=== PATIENT | female | born 1945 | race Caucasian/White ===

== ENCOUNTER 2019-09-02 11:51 | Inpatient (IN) | payer OTHER ==
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
[2019-09-02 15:25] LABS: PH,URINE 5.5 (5.0-8.0); URINE APPEARANCE CLEAR; URINE BILIRUBIN NEGATIVE (NEGATIVE); URINE COLOR YELLOW; URINE GLUCOSE (UA) NEGATIVE (NEGATIVE); URINE KETONE TRACE (NEGATIVE); URINE LEUK ESTERASE NEGATIVE (NEGATIVE); URINE NITRITE NEGATIVE (NEGATIVE); URINE PROTEIN NEGATIVE (NEGATIVE); URINE UROBILINOGEN 0.2 mg/dL (0.2-1.0)
[2019-09-02 15:44] LABS: BASO % 0.7 % (0-2.0); EOS % 0.1 % (0-4.5); HEMATOCRIT 46.7 % (32.4-45.2); HEMOGLOBIN 15.4 GM/dL (10.7-15.3); LYMPH % 5.5 % (8-40); MCH 30.2 pg (25.7-33.7); MEAN CELL VOLUME 91.5 fl (80-96); MEAN PLT VOLUME 9.4 fl (7.5-11.1); MONO % 4.7 % (3.8-10.2); PLATELET COUNT 256 K/MM3 (134-434); RDW 14.4 % (11.6-15.6); WHITE BLOOD COUNT 11.8 K/mm3 (4.0-10.0)
[2019-09-02 16:07] LABS: ALBUMIN 3.8 g/dl (3.4-5.0); ALK PHOS 69 U/L (45-117); ANION GAP 8 MMOL/L (8-16); BILIRUBIN,TOTAL 0.6 mg/dL (0.2-1); BLOOD UREA NITROGEN 33.1 mg/dL (7-18); CALCIUM 9.3 mg/dL (8.5-10.1); CHLORIDE 106 mmol/L (98-107); CO2 26 mmol/L (21-32); CREATININE 0.8 mg/dL (0.55-1.3); GLUCOSE,RANDOM 88 mg/dL (74-106); SGOT/AST 110 U/L (15-37); SGPT/ALT 68 U/L (13-61); SODIUM 141 mmol/L (136-145); TOT PROT 7.3 g/dl (6.4-8.2)
[2019-09-02 16:07] LABS: COCAINE, UR NEGATIVE ng/ml (CUTOFF=300); METHADONE, UR NEGATIVE ng/ml (CUTOFF=300); OPIATES, URI NEGATIVE ng/ml (CUTOFF=300); PHENCYCLIDINE,URINE NEGATIVE ng/ml (CUTOFF=25); URINE AMPHETAMINES NEGATIVE ng/ml (CUTOFF=500); URINE BARBITURATES NEGATIVE ng/ml (CUTOFF=200); URINE BENZODIAZEPINES NEGATIVE ng/ml (CUTOFF=200)
[2019-09-02 17:27] LABS: PLATELET ESTIMATE ADEQUATE
[2019-09-02] MEDS ORDERED: ACETAMINOPHEN 1000 MG/100 ML VIAL (NON FORMULARY) IVPB ONE (18:51)
[2019-09-02] MEDS ORDERED: ACETAMINOPHEN INJECTION 100 ML IVPB ONE (18:57)
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
[2019-09-03] MEDS: ATORVASTATIN CA 10 MG TABLET (FP) PO SCH ×2 (00:10→21:56)
--- NOTE | 2019-09-03 06:44 | FALL ---
Fall Exam - Event Witnessed fall: No Location of Fall: Bathroom Fall from: While ambulating - Pre-Fall Mental Status: Alert Current Medications: Current Medications Generic Name Dose Route Start Last Admin Trade Name Laquita PRN Reason Stop Dose Admin Atorvastatin Calcium 10 mg 09/02/19 22:31 09/03/19 00:10 Lipitor - PO Not Given HS MICHEL Lisinopril 10 mg 09/03/19 10:00 Prinivil PO DAILY MICHEL - Post-Fall Patient Outcome: No Injury Exam Findings: AAOx2 with flat affect-at baseline. HEENT- atraumatic, normocephalic, conjunctiva clear, EOMs intact, PERRL, tympanic membranes intact , nares moist, no exudate, no erythema. Neck- supple, FROM. Lungs-CTAB, Heart- RRR, S1,S2, no MGR. Abd- soft, non-tender, BS present. Musculoskeletal- non- tender, no swelling, FROM. Hip/Pelvis- non-tender. Extremites- FROM, no shortening. Treatment: None Vital Signs: Vital Signs Temperature 97.6 F 09/03/19 06:02 Pulse Rate 89 09/03/19 06:02 Respiratory Rate 18 09/03/19 06:31 Blood Pressure 146/90 09/03/19 06:02 O2 Sat by Pulse Oximetry (%) 98 09/03/19 06:31 LOC Post-Fall: Alert Identify factors for HIGH RISK for Head Injury: Pt on anticoagulant
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
[2019-09-03 07:55] LABS: BASO % 0.6 % (0-2.0); EOS % 0.3 % (0-4.5); HEMATOCRIT 45.2 % (32.4-45.2); HEMOGLOBIN 15.3 GM/dL (10.7-15.3); LYMPH % 8.3 % (8-40); MCH 30.8 pg (25.7-33.7); MCHC 33.9 g/dl (32.0-36.0); MEAN CELL VOLUME 90.7 fl (80-96); MEAN PLT VOLUME 9.1 fl (7.5-11.1); MONO % 5.7 % (3.8-10.2); NEUT % 85.1 % (42.8-82.8); PLATELET COUNT 251 K/MM3 (134-434); RBC 4.98 M/mm3 (3.60-5.2); RDW 14.5 % (11.6-15.6); WHITE BLOOD COUNT 10.8 K/mm3 (4.0-10.0)
[2019-09-03 09:29] LABS: BLOOD UREA NITROGEN 24.4 mg/dL (7-18); CALCIUM 9.4 mg/dL (8.5-10.1); CREATININE 0.7 mg/dL (0.55-1.3); POTASSIUM 3.7 mmol/L (3.5-5.1)
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
--- NOTE | 2019-09-03 11:03 | EKG ---
Test Reason : Blood Pressure : / mmHG Vent. Rate : 085 BPM Atrial Rate : 085 BPM P-R Int : 130 ms QRS Dur : 074 ms QT Int : 372 ms P-R-T Axes : 053 -06 039 degrees QTc Int : 442 ms POOR DATA QUALITY, INTERPRETATION MAY BE ADVERSELY AFFECTED SINUS RHYTHM WITH PREMATURE ATRIAL COMPLEXES POSSIBLE LEFT ATRIAL ENLARGEMENT BORDERLINE ECG WHEN COMPARED WITH ECG OF 28-JUL-2019 11:49, PREMATURE ATRIAL COMPLEXES ARE NOW PRESENT VENT. RATE HAS INCREASED BY 28 BPM Confirmed by HENNA RIOS MD ([id number]) on 09/03/2019 11:02:56 AM Referred By: Confirmed By:HENNA RIOS MD
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
[2019-09-03] MEDS: LISINOPRIL 10 MG TABLET (FP) PO SCH (11:12)
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
[2019-09-03] MEDS: ESCITALOPRAM OXALATE 10 MG TABLET PO SCH (21:56)
[2019-09-04 08:17] LABS: BASO % 0.7 % (0-2.0); EOS % 1.1 % (0-4.5); HEMATOCRIT 42.7 % (32.4-45.2); HEMOGLOBIN 14.2 GM/dL (10.7-15.3); LYMPH % 14.9 % (8-40); MCH 30.2 pg (25.7-33.7); MCHC 33.4 g/dl (32.0-36.0); MEAN CELL VOLUME 90.6 fl (80-96); MEAN PLT VOLUME 8.7 fl (7.5-11.1); MONO % 7.1 % (3.8-10.2); NEUT % 76.2 % (42.8-82.8); PLATELET COUNT 239 K/MM3 (134-434); RBC 4.71 M/mm3 (3.60-5.2); RDW 14.7 % (11.6-15.6); WHITE BLOOD COUNT 9.7 K/mm3 (4.0-10.0)
[2019-09-04 08:31] LABS: BLOOD UREA NITROGEN 27.8 mg/dL (7-18); CALCIUM 8.7 mg/dL (8.5-10.1); CREATININE 0.8 mg/dL (0.55-1.3); POTASSIUM 3.9 mmol/L (3.5-5.1)
[2019-09-04] MEDS: ESCITALOPRAM OXALATE 10 MG TABLET PO SCH (10:03)
[2019-09-04] MEDS: LISINOPRIL 10 MG TABLET (FP) PO SCH (10:04)
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
--- NOTE | 2019-09-04 12:50 | EKG ---
Test Reason : Blood Pressure : / mmHG Vent. Rate : 072 BPM Atrial Rate : 072 BPM P-R Int : 138 ms QRS Dur : 084 ms QT Int : 396 ms P-R-T Axes : 046 -07 024 degrees QTc Int : 433 ms SINUS RHYTHM WITH OCCASIONAL PREMATURE VENTRICULAR COMPLEXES OTHERWISE NORMAL ECG WHEN COMPARED WITH ECG OF 02-SEP-2019 15:36, PREMATURE VENTRICULAR COMPLEXES ARE NOW PRESENT PREMATURE ATRIAL COMPLEXES ARE NO LONGER PRESENT Confirmed by GENA HO, VERONA ([id number]) on 09/04/2019 12:50:26 PM Referred By: Minor RODRÍGUEZ Confirmed By:VERONA AVERY MD
--- NOTE | 2019-09-04 15:41 | PN ---
Progress Note, Physician History of Present Illness: Pt is very depressed Not Talking today Pt need to be reevaluated by psych No Fever No SOB No chest pain - Current Medication List Current Medications: Active Medications Escitalopram Oxalate (Lexapro -) 10 mg PO DAILY [facility] Last Admin: 09/04/19 10:03 Dose: 10 mg Lisinopril (Prinivil) 10 mg PO DAILY [facility] Last Admin: 09/04/19 10:04 Dose: 10 mg - Objective Vital Signs: Vital Signs Temperature 98.7 F 09/04/19 13:53 Pulse Rate 67 09/04/19 13:53 Respiratory Rate 20 09/04/19 13:53 Blood Pressure 104/61 09/04/19 13:53 O2 Sat by Pulse Oximetry (%) 97 09/04/19 06:00 Constitutional: Yes: Anxious Eyes: Yes: Conjunctiva Clear, EOM Intact HENT: Yes: Atraumatic, Normocephalic Neck: Yes: Supple, Trachea Midline Cardiovascular: Yes: Regular Rate and Rhythm, S1, S2 Respiratory: Yes: Regular, CTA Bilaterally Gastrointestinal: Yes: Normal Bowel Sounds, Soft Labs: CBC, BMP 09/04/19 07:40 09/04/19 07:40 Problem List - Problems (1) Altered mental status Code(s): R41.82 - ALTERED MENTAL STATUS, UNSPECIFIED (2) Anxiety Code(s): F41.9 - ANXIETY DISORDER, UNSPECIFIED (3) Diastolic CHF Code(s): I50.30 - UNSPECIFIED DIASTOLIC (CONGESTIVE) HEART FAILURE (4) HLD (hyperlipidemia) Code(s): E78.5 - HYPERLIPIDEMIA, UNSPECIFIED (5) Hypertension Code(s): I10 - ESSENTIAL (PRIMARY) HYPERTENSION (6) Paranoia Code(s): F22 - DELUSIONAL DISORDERS (7) Rhabdomyolysis Code(s): M62.82 - RHABDOMYOLYSIS Assessment/Plan (1) Diastolic CHF Assessment/Plan: TNI < 0.02 x 2. ECHO 08/03: normal LVEF; diastolic dysfunction; mild MR and TR. EKG: sinus bradycardia; LAE; nonspecific T wave changes. On lisinopril. F/u BUN/Cr, electrolytes, TSH, Is and Os, daily weight. Code(s): I50.30 - UNSPECIFIED DIASTOLIC (CONGESTIVE) HEART FAILURE (2) Altered mental status Code(s): R41.82 - ALTERED MENTAL STATUS, UNSPECIFIED (3) Anxiety Code(s): F41.9 - ANXIETY DISORDER, UNSPECIFIED (4) HLD (hyperlipidemia) Assessment/Plan: on atorvastatin 10 mg daily for at least the past month. Elevated CK ?related to this class of medication. Recommend holding it and following CK. Code(s): E78.5 - HYPERLIPIDEMIA, UNSPECIFIED (5) Hypertension Code(s): I10 - ESSENTIAL (PRIMARY) HYPERTENSION (6) Paranoia Code(s): F22 - DELUSIONAL DISORDERS (7) Rhabdomyolysis Assessment/Plan: Elevated CK and CKMB, with low relative index. Normal TNI. EKG: sinus jemma; nonspecific T wave changes. Elevated BUN.
--- NOTE | 2019-09-04 15:44 | PN ---
Progress Note, Physician - Current Medication List Current Medications: Active Medications Escitalopram Oxalate (Lexapro -) 10 mg PO DAILY [facility] Last Admin: 09/04/19 10:03 Dose: 10 mg Lisinopril (Prinivil) 10 mg PO DAILY [facility] Last Admin: 09/04/19 10:04 Dose: 10 mg - Objective Vital Signs: Vital Signs Temperature 98.7 F 09/04/19 13:53 Pulse Rate 67 09/04/19 13:53 Respiratory Rate 09/04/19 13:53 Blood Pressure 104/61 09/04/19 13:53 O2 Sat by Pulse Oximetry (%) 97 09/04/19 06:00 Constitutional: Yes: Calm Eyes: Yes: Conjunctiva Clear, EOM Intact HENT: Yes: Atraumatic, Normocephalic Neck: Yes: Supple, Trachea Midline Cardiovascular: Yes: Regular Rate and Rhythm, S1, S2 Respiratory: Yes: Regular, CTA Bilaterally Gastrointestinal: Yes: Normal Bowel Sounds, Soft Edema: No Peripheral Pulses WNL: Yes Labs: CBC, BMP 09/04/19 07:40 09/04/19 07:40 Problem List - Problems (1) Altered mental status Code(s): R41.82 - ALTERED MENTAL STATUS, UNSPECIFIED (2) Anxiety Code(s): F41.9 - ANXIETY DISORDER, UNSPECIFIED (3) Diastolic CHF Code(s): I50.30 - UNSPECIFIED DIASTOLIC (CONGESTIVE) HEART FAILURE (4) HLD (hyperlipidemia) Code(s): E78.5 - HYPERLIPIDEMIA, UNSPECIFIED (5) Hypertension Code(s): I10 - ESSENTIAL (PRIMARY) HYPERTENSION (6) Paranoia Code(s): F22 - DELUSIONAL DISORDERS (7) Rhabdomyolysis Code(s): M62.82 - RHABDOMYOLYSIS
[2019-09-05] MEDS: D5-1/2NS+10 MEQ KCL - 10 MEQ/1,000 ML INFUS.BAG IV SCH ×2 (00:45→22:56)
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
[2019-09-05] MEDS: ESCITALOPRAM OXALATE 10 MG TABLET PO SCH (10:03)
[2019-09-05] MEDS: LISINOPRIL 10 MG TABLET (FP) PO SCH (10:03)
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
[2019-09-05 14:30] VITALS: BMI 26.4
[2019-09-05] MEDS: clonazePAM 0.5 MG TABLET PO SCH (21:00)
--- NOTE | 2019-09-05 23:30 | PN ---
Progress Note, Physician History of Present Illness: Pt seen by psych Pt is paranoid, Fearful, Not Talking spoke with Psych Dr Sanchez Pt is not eating and Drinking on IV fluids - Current Medication List Current Medications: Active Medications Clonazepam (Klonopin -) 1 mg PO BID [facility] Last Admin: 09/05/19 21:00 Dose: 1 mg Potassium Chloride/Dextrose/Sod Cl (D5-1/2ns+10 Meq Kcl -) 10 meq in 1,000 mls @ 75 mls/hr IV ASDIR [facility] Last Admin: 09/05/19 22:56 Dose: 75 mls/hr Lisinopril (Prinivil) 10 mg PO DAILY [facility] Last Admin: 09/05/19 10:03 Dose: 10 mg - Objective Vital Signs: Vital Signs Temperature 97.8 F 09/05/19 21:06 Pulse Rate 69 09/05/19 21:06 Respiratory Rate 22 H 09/05/19 21:06 Blood Pressure 151/69 09/05/19 21:06 O2 Sat by Pulse Oximetry (%) 95 09/05/19 09:00 Constitutional: Yes: Anxious Eyes: Yes: Conjunctiva Clear, EOM Intact HENT: Yes: Atraumatic, Normocephalic Neck: Yes: Supple, Trachea Midline Cardiovascular: Yes: Regular Rate and Rhythm, S1, S2 Respiratory: Yes: Regular, CTA Bilaterally Gastrointestinal: Yes: Normal Bowel Sounds, Soft Edema: No Peripheral Pulses WNL: Yes Labs: CBC, BMP 09/04/19 07:40 09/04/19 07:40 Problem List - Problems (1) Altered mental status Code(s): R41.82 - ALTERED MENTAL STATUS, UNSPECIFIED (2) Anxiety Code(s): F41.9 - ANXIETY DISORDER, UNSPECIFIED (3) Diastolic CHF Code(s): I50.30 - UNSPECIFIED DIASTOLIC (CONGESTIVE) HEART FAILURE (4) HLD (hyperlipidemia) Code(s): E78.5 - HYPERLIPIDEMIA, UNSPECIFIED (5) Hypertension Code(s): I10 - ESSENTIAL (PRIMARY) HYPERTENSION (6) Paranoia Code(s): F22 - DELUSIONAL DISORDERS (7) Rhabdomyolysis Code(s): M62.82 - RHABDOMYOLYSIS Assessment/Plan (1) Diastolic CHF Assessment/Plan: TNI < 0.02 x 2. ECHO 08/03: normal LVEF; diastolic dysfunction; mild MR and TR. EKG: sinus bradycardia; LAE; nonspecific T wave changes. On lisinopril. F/u BUN/Cr, electrolytes, TSH, Is and Os, daily weight. Code(s): I50.30 - UNSPECIFIED DIASTOLIC (CONGESTIVE) HEART FAILURE (2) Altered mental status Code(s): R41.82 - ALTERED MENTAL STATUS, UNSPECIFIED (3) Anxiety Code(s): F41.9 - ANXIETY DISORDER, UNSPECIFIED (4) HLD (hyperlipidemia) Assessment/Plan: on atorvastatin 10 mg daily for at least the past month. Elevated CK ?related to this class of medication. Recommend holding it and following CK. Code(s): E78.5 - HYPERLIPIDEMIA, UNSPECIFIED (5) Hypertension Code(s): I10 - ESSENTIAL (PRIMARY) HYPERTENSION (6) Paranoia Code(s): F22 - DELUSIONAL DISORDERS (7) Rhabdomyolysis Assessment/Plan: Elevated CK and CKMB, with low relative index. Normal TNI. EKG: sinus jemma; nonspecific T wave changes. Elevated BUN. Pt is very anxiious and paranoid started on klonopine Pt On IV fluids
[2019-09-06] MEDS: D5-1/2NS+10 MEQ KCL - 10 MEQ/1,000 ML INFUS.BAG IV SCH
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
[2019-09-06] MEDS: clonazePAM 0.5 MG TABLET PO SCH ×2 (09:21→21:59)
[2019-09-06] MEDS: LISINOPRIL 10 MG TABLET (FP) PO SCH (09:21)
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
[2019-09-06] MEDS ORDERED: clonazePAM 0.5 MG TABLET PO STA (11:25)
--- NOTE | 2019-09-06 11:31 | PN ---
Progress Note (short form) - Note Progress Note: Psych follow up; Case discussed with staff, much improved, got up and ambulated, reports feeling better. ate, BP returned to Normal;. Patient slept well. Staff report [id number] she dis not voiced any paranoid thoughts. Spoke to patients Son briefly. Has been sleepiong this morning. REC: will reduce Klonapin 0.5mg po bid. 2) Proabably will go home if she continues to improve.0
--- NOTE | 2019-09-06 23:34 | PN ---
Progress Note, Physician History of Present Illness: Pt had improved, got up and ambulated, reports feeling better. ate, BP returned to Normal;. Patient slept well. No paranoid thoughts. Spoke to patients Son and daughter. No Falls No Fever NO SOB Psych FU appreciated - Current Medication List Current Medications: Active Medications Clonazepam (Klonopin -) 0.5 mg PO BID [facility] Last Admin: 09/06/19 21:59 Dose: 0.5 mg Potassium Chloride/Dextrose/Sod Cl (D5-1/2ns+10 Meq Kcl -) 10 meq in 1,000 mls @ 75 mls/hr IV ASDIR [facility] Last Admin: 09/06/19 00:00 Dose: Not Given Lisinopril (Prinivil) 10 mg PO DAILY [facility] Last Admin: 09/06/19 09:21 Dose: 10 mg - Objective Vital Signs: Vital Signs Temperature 97.7 F 09/06/19 21:00 Pulse Rate 66 09/06/19 21:00 Respiratory Rate 18 09/06/19 21:00 Blood Pressure 91/57 L 09/06/19 21:00 O2 Sat by Pulse Oximetry (%) 96 09/06/19 21:00 Constitutional: Yes: Anxious Eyes: Yes: Conjunctiva Clear, EOM Intact HENT: Yes: Atraumatic, Normocephalic Neck: Yes: Supple, Trachea Midline Cardiovascular: Yes: Regular Rate and Rhythm Respiratory: Yes: Regular, CTA Bilaterally Gastrointestinal: Yes: Normal Bowel Sounds, Soft Edema: No Peripheral Pulses WNL: Yes Labs: CBC, BMP 09/04/19 07:40 09/04/19 07:40 Problem List - Problems (1) Altered mental status Code(s): R41.82 - ALTERED MENTAL STATUS, UNSPECIFIED (2) Anxiety Code(s): F41.9 - ANXIETY DISORDER, UNSPECIFIED (3) Diastolic CHF Code(s): I50.30 - UNSPECIFIED DIASTOLIC (CONGESTIVE) HEART FAILURE (4) HLD (hyperlipidemia) Code(s): E78.5 - HYPERLIPIDEMIA, UNSPECIFIED (5) Hypertension Code(s): I10 - ESSENTIAL (PRIMARY) HYPERTENSION (6) Paranoia Code(s): F22 - DELUSIONAL DISORDERS (7) Rhabdomyolysis Code(s): M62.82 - RHABDOMYOLYSIS Assessment/Plan (1) Diastolic CHF Assessment/Plan: TNI < 0.02 x 2. ECHO 08/03: normal LVEF; diastolic dysfunction; mild MR and TR. EKG: sinus bradycardia; LAE; nonspecific T wave changes. On lisinopril. F/u BUN/Cr, electrolytes, TSH, Is and Os, daily weight. Code(s): I50.30 - UNSPECIFIED DIASTOLIC (CONGESTIVE) HEART FAILURE (2) Altered mental status Code(s): R41.82 - ALTERED MENTAL STATUS, UNSPECIFIED (3) Anxiety Code(s): F41.9 - ANXIETY DISORDER, UNSPECIFIED (4) HLD (hyperlipidemia) Assessment/Plan: on atorvastatin 10 mg daily for at least the past month. Elevated CK ?related to this class of medication. Recommend holding it and following CK. Code(s): E78.5 - HYPERLIPIDEMIA, UNSPECIFIED (5) Hypertension Code(s): I10 - ESSENTIAL (PRIMARY) HYPERTENSION (6) Paranoia Code(s): F22 - DELUSIONAL DISORDERS (7) Rhabdomyolysis Assessment/Plan: Elevated CK and CKMB, with low relative index. Normal TNI. EKG: sinus jemma; nonspecific T wave changes. Elevated BUN. Pt is very anxiious and paranoid started on klonopine and Better today daughter at Bedside Pt On IV fluids
[2019-09-07] MEDS: D5-1/2NS+10 MEQ KCL - 10 MEQ/1,000 ML INFUS.BAG IV SCH ×2 (00:37→13:58)
[2019-09-07 08:18] LABS: BASO % 1.1 % (0-2.0); EOS % 1.5 % (0-4.5); HEMATOCRIT 40.5 % (32.4-45.2); HEMOGLOBIN 13.5 GM/dL (10.7-15.3); LYMPH % 10.2 % (8-40); MCH 30.4 pg (25.7-33.7); MCHC 33.3 g/dl (32.0-36.0); MEAN CELL VOLUME 91.3 fl (80-96); MEAN PLT VOLUME 8.9 fl (7.5-11.1); MONO % 7.2 % (3.8-10.2); PLATELET COUNT 230 K/MM3 (134-434); RBC 4.44 M/mm3 (3.60-5.2); RDW 14.4 % (11.6-15.6); WHITE BLOOD COUNT 12.6 K/mm3 (4.0-10.0)
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
[2019-09-07 09:01] LABS: BLOOD UREA NITROGEN 12.2 mg/dL (7-18); CALCIUM 8.5 mg/dL (8.5-10.1); CREATININE 0.8 mg/dL (0.55-1.3); POTASSIUM 4.2 mmol/L (3.5-5.1)
[2019-09-07] MEDS: LISINOPRIL 10 MG TABLET (FP) PO SCH (10:04)
[2019-09-07] MEDS: clonazePAM 0.5 MG TABLET PO SCH ×2 (10:04→22:10)
--- NOTE | 2019-09-07 21:48 | PN ---
Progress Note, Physician - Current Medication List Current Medications: Active Medications Clonazepam (Klonopin -) 0.5 mg PO BID [facility] Last Admin: 09/07/19 10:04 Dose: 0.5 mg Potassium Chloride/Dextrose/Sod Cl (D5-1/2ns+10 Meq Kcl -) 10 meq in 1,000 mls @ 75 mls/hr IV ASDIR [facility] Last Admin: 09/07/19 13:58 Dose: 75 mls/hr Lisinopril (Prinivil) 10 mg PO DAILY [facility] Last Admin: 09/07/19 10:04 Dose: 10 mg - Objective Vital Signs: Vital Signs Temperature 97.2 F L 09/07/19 17:14 Pulse Rate 64 09/07/19 17:14 Respiratory Rate 18 09/07/19 17:14 Blood Pressure 109/62 09/07/19 17:14 O2 Sat by Pulse Oximetry (%) 96 09/07/19 09:00 Labs: CBC, BMP 09/07/19 07:05 09/07/19 07:05 Problem List - Problems (1) Altered mental status Code(s): R41.82 - ALTERED MENTAL STATUS, UNSPECIFIED (2) Anxiety Code(s): F41.9 - ANXIETY DISORDER, UNSPECIFIED (3) Diastolic CHF Code(s): I50.30 - UNSPECIFIED DIASTOLIC (CONGESTIVE) HEART FAILURE (4) HLD (hyperlipidemia) Code(s): E78.5 - HYPERLIPIDEMIA, UNSPECIFIED (5) Hypertension Code(s): I10 - ESSENTIAL (PRIMARY) HYPERTENSION (6) Paranoia Code(s): F22 - DELUSIONAL DISORDERS (7) Rhabdomyolysis Code(s): M62.82 - RHABDOMYOLYSIS
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
[2019-09-08] MEDS: D5-1/2NS+10 MEQ KCL - 10 MEQ/1,000 ML INFUS.BAG IV SCH (09:15)
[2019-09-08] MEDS: clonazePAM 0.5 MG TABLET PO SCH ×2 (09:20→21:02)
[2019-09-08] MEDS: LISINOPRIL 10 MG TABLET (FP) PO SCH (09:20)
--- NOTE | 2019-09-08 10:45 | PN ---
Progress Note (short form) - Note Progress Note: Patient seen, spoke to her son. Alert, sitting in chair and eating breakfast, good eye contact, responding to questions appropriately. denies feelin g depressed or suicidal. deniesany anxirty either. feels lot better. REC: reduce Klonapin to 0,5mg po hs. 2) discharge Home when medically stable.
--- NOTE | 2019-09-08 21:22 | PN ---
Progress Note, Physician History of Present Illness: Pt today seen by psych Pt is relatively better No Fever No SOB No Chest pain - Current Medication List Current Medications: Active Medications Clonazepam (Klonopin -) 0.5 mg PO HS [facility] Last Admin: 09/08/19 21:02 Dose: 0.5 mg Lisinopril (Prinivil) 10 mg PO DAILY [facility] Last Admin: 09/08/19 09:20 Dose: 10 mg - Objective Vital Signs: Vital Signs Temperature 97.9 F 09/08/19 18:00 Pulse Rate 65 09/08/19 18:00 Respiratory Rate 18 09/08/19 18:00 Blood Pressure 119/69 09/08/19 18:00 O2 Sat by Pulse Oximetry (%) 97 09/08/19 08:31 Constitutional: Yes: Anxious Eyes: Yes: Conjunctiva Clear, EOM Intact HENT: Yes: Atraumatic, Normocephalic Neck: Yes: Supple, Trachea Midline Cardiovascular: Yes: Regular Rate and Rhythm, S1, S2 Respiratory: Yes: Regular, CTA Bilaterally Gastrointestinal: Yes: Normal Bowel Sounds, Soft Labs: CBC, BMP 09/07/19 07:05 09/07/19 07:05 Problem List - Problems (1) Altered mental status Code(s): R41.82 - ALTERED MENTAL STATUS, UNSPECIFIED (2) Anxiety Code(s): F41.9 - ANXIETY DISORDER, UNSPECIFIED (3) Diastolic CHF Code(s): I50.30 - UNSPECIFIED DIASTOLIC (CONGESTIVE) HEART FAILURE (4) HLD (hyperlipidemia) Code(s): E78.5 - HYPERLIPIDEMIA, UNSPECIFIED (5) Hypertension Code(s): I10 - ESSENTIAL (PRIMARY) HYPERTENSION (6) Paranoia Code(s): F22 - DELUSIONAL DISORDERS (7) Rhabdomyolysis Code(s): M62.82 - RHABDOMYOLYSIS Assessment/Plan (1) Diastolic CHF Assessment/Plan: TNI < 0.02 x 2. ECHO 08/03: normal LVEF; diastolic dysfunction; mild MR and TR. EKG: sinus bradycardia; LAE; nonspecific T wave changes. On lisinopril. F/u BUN/Cr, electrolytes, TSH, Is and Os, daily weight. Code(s): I50.30 - UNSPECIFIED DIASTOLIC (CONGESTIVE) HEART FAILURE (2) Altered mental status Code(s): R41.82 - ALTERED MENTAL STATUS, UNSPECIFIED (3) Anxiety Code(s): F41.9 - ANXIETY DISORDER, UNSPECIFIED (4) HLD (hyperlipidemia) Assessment/Plan: on atorvastatin 10 mg daily for at least the past month. Elevated CK ?related to this class of medication. Recommend holding it and following CK. Code(s): E78.5 - HYPERLIPIDEMIA, UNSPECIFIED (5) Hypertension Code(s): I10 - ESSENTIAL (PRIMARY) HYPERTENSION (6) Paranoia Code(s): F22 - DELUSIONAL DISORDERS (7) Rhabdomyolysis Assessment/Plan: Elevated CK and CKMB, with low relative index. Normal TNI. EKG: sinus jemma; nonspecific T wave changes. Elevated BUN. FU with Psych note noted PT to ambulate the patient
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
[2019-09-09] MEDS: LISINOPRIL 10 MG TABLET (FP) PO SCH (09:31)
--- NOTE | 2019-09-09 16:18 | PN ---
Progress Note, Physician History of Present Illness: Pt is relatively better seen the Psych Fu note - Current Medication List Current Medications: Active Medications Clonazepam (Klonopin -) 0.5 mg PO HS [facility] Last Admin: 09/08/19 21:02 Dose: 0.5 mg Lisinopril (Prinivil) 10 mg PO DAILY [facility] Last Admin: 09/09/19 09:31 Dose: 10 mg - Objective Vital Signs: Vital Signs Temperature 97.8 F 09/09/19 13:28 Pulse Rate 65 09/09/19 13:28 Respiratory Rate 20 09/09/19 13:28 Blood Pressure 109/63 09/09/19 13:28 O2 Sat by Pulse Oximetry (%) 97 09/09/19 08:55 Constitutional: Yes: Anxious Eyes: Yes: Conjunctiva Clear, EOM Intact HENT: Yes: Atraumatic, Normocephalic Neck: Yes: Supple, Trachea Midline Cardiovascular: Yes: Regular Rate and Rhythm, S1, S2 Respiratory: Yes: Regular, CTA Bilaterally Gastrointestinal: Yes: Normal Bowel Sounds, Soft Edema: No Peripheral Pulses WNL: Yes Neurological: Yes: Alert, Oriented, Cran Nerves II-XII Intact Labs: CBC, BMP 09/07/19 07:05 09/07/19 07:05 Problem List - Problems (1) Altered mental status Code(s): R41.82 - ALTERED MENTAL STATUS, UNSPECIFIED (2) Anxiety Code(s): F41.9 - ANXIETY DISORDER, UNSPECIFIED (3) Diastolic CHF Code(s): I50.30 - UNSPECIFIED DIASTOLIC (CONGESTIVE) HEART FAILURE (4) HLD (hyperlipidemia) Code(s): E78.5 - HYPERLIPIDEMIA, UNSPECIFIED (5) Hypertension Code(s): I10 - ESSENTIAL (PRIMARY) HYPERTENSION (6) Paranoia Code(s): F22 - DELUSIONAL DISORDERS (7) Rhabdomyolysis Code(s): M62.82 - RHABDOMYOLYSIS Assessment/Plan (1) Diastolic CHF Assessment/Plan: TNI < 0.02 x 2. ECHO 08/03: normal LVEF; diastolic dysfunction; mild MR and TR. EKG: sinus bradycardia; LAE; nonspecific T wave changes. On lisinopril. F/u BUN/Cr, electrolytes, TSH, Is and Os, daily weight. Code(s): I50.30 - UNSPECIFIED DIASTOLIC (CONGESTIVE) HEART FAILURE (2) Altered mental status Code(s): R41.82 - ALTERED MENTAL STATUS, UNSPECIFIED (3) Anxiety Code(s): F41.9 - ANXIETY DISORDER, UNSPECIFIED (4) HLD (hyperlipidemia) Assessment/Plan: on atorvastatin 10 mg daily for at least the past month. Elevated CK ?related to this class of medication. Recommend holding it and following CK. Code(s): E78.5 - HYPERLIPIDEMIA, UNSPECIFIED (5) Hypertension Code(s): I10 - ESSENTIAL (PRIMARY) HYPERTENSION (6) Paranoia Code(s): F22 - DELUSIONAL DISORDERS (7) Rhabdomyolysis Assessment/Plan: Elevated CK and CKMB, with low relative index. Normal TNI. EKG: sinus jemma; nonspecific T wave changes. Elevated BUN. Pt is doing well Pt will have to go to [facility] Pt will not be able to manage at home
[2019-09-09] MEDS: clonazePAM 0.5 MG TABLET PO SCH (23:00)
[2019-09-10 07:03] LABS: BASO % 0.8 % (0-2.0); EOS % 0.7 % (0-4.5); LYMPH % 13.4 % (8-40); MCH 30.8 pg (25.7-33.7); MCHC 34.1 g/dl (32.0-36.0); MEAN CELL VOLUME 90.3 fl (80-96); MEAN PLT VOLUME 8.6 fl (7.5-11.1); MONO % 7.2 % (3.8-10.2); NEUT % 77.9 % (42.8-82.8); PLATELET COUNT 291 K/MM3 (134-434); RBC 4.54 M/mm3 (3.60-5.2); RDW 14.2 % (11.6-15.6)
[2019-09-10 07:19] LABS: BLOOD UREA NITROGEN 12.3 mg/dL (7-18); CALCIUM 8.9 mg/dL (8.5-10.1); CREATININE 0.7 mg/dL (0.55-1.3); POTASSIUM 4.2 mmol/L (3.5-5.1)
[2019-09-10] MEDS: LISINOPRIL 10 MG TABLET (FP) PO SCH (10:27)
--- NOTE | 2019-09-10 13:27 | PN ---
Progress Note, Physician History of Present Illness: Pt is doing well No Fever No SOB No chest pain No palpitations - Current Medication List Current Medications: Active Medications Clonazepam (Klonopin -) 0.5 mg PO HS [facility] Last Admin: 09/09/19 23:00 Dose: 0.5 mg Lisinopril (Prinivil) 10 mg PO DAILY [facility] Last Admin: 09/10/19 10:27 Dose: 10 mg - Objective Vital Signs: Vital Signs Temperature 98 F 09/10/19 10:00 Pulse Rate 60 09/10/19 10:00 Respiratory Rate 20 09/10/19 10:00 Blood Pressure 100/66 09/10/19 10:00 O2 Sat by Pulse Oximetry (%) 97 09/09/19 21:00 Constitutional: Yes: Anxious Eyes: Yes: Conjunctiva Clear, EOM Intact HENT: Yes: Atraumatic, Normocephalic Neck: Yes: Supple, Trachea Midline Cardiovascular: Yes: Regular Rate and Rhythm, S1, S2 Respiratory: Yes: Regular, CTA Bilaterally Gastrointestinal: Yes: Normal Bowel Sounds, Soft Labs: CBC, BMP 09/10/19 06:05 09/10/19 06:05 Problem List - Problems (1) Altered mental status Code(s): R41.82 - ALTERED MENTAL STATUS, UNSPECIFIED (2) Anxiety Code(s): F41.9 - ANXIETY DISORDER, UNSPECIFIED (3) Diastolic CHF Code(s): I50.30 - UNSPECIFIED DIASTOLIC (CONGESTIVE) HEART FAILURE (4) HLD (hyperlipidemia) Code(s): E78.5 - HYPERLIPIDEMIA, UNSPECIFIED (5) Hypertension Code(s): I10 - ESSENTIAL (PRIMARY) HYPERTENSION (6) Paranoia Code(s): F22 - DELUSIONAL DISORDERS (7) Rhabdomyolysis Code(s): M62.82 - RHABDOMYOLYSIS Assessment/Plan (1) Diastolic CHF Assessment/Plan: TNI < 0.02 x 2. ECHO 08/03: normal LVEF; diastolic dysfunction; mild MR and TR. EKG: sinus bradycardia; LAE; nonspecific T wave changes. On lisinopril. F/u BUN/Cr, electrolytes, TSH, Is and Os, daily weight. Code(s): I50.30 - UNSPECIFIED DIASTOLIC (CONGESTIVE) HEART FAILURE (2) Altered mental status Code(s): R41.82 - ALTERED MENTAL STATUS, UNSPECIFIED (3) Anxiety Code(s): F41.9 - ANXIETY DISORDER, UNSPECIFIED (4) HLD (hyperlipidemia) Assessment/Plan: on atorvastatin 10 mg daily for at least the past month. Elevated CK ?related to this class of medication. Recommend holding it and following CK. Code(s): E78.5 - HYPERLIPIDEMIA, UNSPECIFIED (5) Hypertension Code(s): I10 - ESSENTIAL (PRIMARY) HYPERTENSION (6) Paranoia Code(s): F22 - DELUSIONAL DISORDERS (7) Rhabdomyolysis Assessment/Plan: Elevated CK and CKMB, with low relative index. Normal TNI. EKG: sinus jemma; nonspecific T wave changes. Elevated BUN. Pt wanted to ho home we will have visiting Nurse services as Op
[2019-09-10] MEDS: clonazePAM 0.5 MG TABLET PO SCH (21:32)
--- NOTE | 2019-09-10 21:41 | DS ---
Physical Examination Vital Signs: Vital Signs Temperature 97.6 F 09/10/19 17:03 Pulse Rate 68 09/10/19 17:03 Respiratory Rate 18 09/10/19 17:03 Blood Pressure 114/69 09/10/19 17:03 O2 Sat by Pulse Oximetry (%) 98 09/10/19 09:00 Constitutional: Yes: Calm Eyes: Yes: Conjunctiva Clear, EOM Intact HENT: Yes: Atraumatic, Normocephalic Neck: Yes: Supple, Trachea Midline Labs: CBC, BMP 09/10/19 06:05 09/10/19 06:05 Discharge Summary Problems reviewed: Yes Reason For Visit: ALTERED MENTAL STATUS Current Active Problems Acute metabolic encephalopathy (Acute) Altered mental status (Acute) Anxiety (Acute) Diastolic CHF (Acute) HLD (hyperlipidemia) (Acute) Hypertension (Acute) Paranoia (Acute) Rhabdomyolysis (Acute) Hospital Course: Pt was having Depression Anxiety Pt did not improve Pt was seen By Dr Sanchez Psychiatry Pt had improved considerably Pt will Go to [facility] for rehad Pt if refusing will go home with Home care services and PT at Home spoke with son Pt will FU with PMD Dr trent in one week Pt will Fu with 1) Psych Dr Sanchez 2) Psychotherapy Condition: Stable - Instructions Diet, Activity, Other Instructions: Regualr Diet Referrals: Gwyn Hernandes MD [Staff Physician] - Disposition: VNS/HOME HEALTH CARE - Home Medications Comprehensive Discharge Medication List: Ambulatory Orders Atorvastatin Ca [Lipitor] 10 mg PO HS 09/02/19 Lisinopril 10 mg Po daily Klonopin 0.5 mg at BT FU with Psychiatry Dr Sanchez Psychotherapy spoke with son
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
[2019-09-11] MEDS: LISINOPRIL 10 MG TABLET (FP) PO SCH (09:52)
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
[2019-09-11 14:59] VITALS: BP 130/73; PULSE 63; TEMP 98.4
--- NOTE | 2019-09-11 16:20 | DS ---
Physical Examination Vital Signs: Vital Signs Temperature 98.4 F 09/11/19 14:57 Pulse Rate 63 09/11/19 14:57 Respiratory Rate 18 09/11/19 14:57 Blood Pressure 130/73 09/11/19 14:57 O2 Sat by Pulse Oximetry (%) 98 09/11/19 09:00 Constitutional: Yes: Anxious Eyes: Yes: Conjunctiva Clear, EOM Intact HENT: Yes: Atraumatic, Normocephalic Neck: Yes: Supple, Trachea Midline Cardiovascular: Yes: Regular Rate and Rhythm, S1, S2 Respiratory: Yes: Regular, CTA Bilaterally, Tachypnea Gastrointestinal: Yes: Normal Bowel Sounds, Soft Edema: No Peripheral Pulses WNL: Yes Labs: CBC, BMP 09/10/19 06:05 09/10/19 06:05 Discharge Summary Problems reviewed: Yes Reason For Visit: ALTERED MENTAL STATUS Current Active Problems Acute metabolic encephalopathy (Acute) Altered mental status (Acute) Anxiety (Acute) Diastolic CHF (Acute) HLD (hyperlipidemia) (Acute) Hypertension (Acute) Paranoia (Acute) Rhabdomyolysis (Acute) Hospital Course: Pt was having Depression Anxiety Pt did not improve Pt was seen By Dr Sanchez Psychiatry Pt had improved considerably Pt will Go to [facility] for rehad Pt if refusing will go home with Home care services and PT at Home spoke with son Pt will FU with PMD Dr trent in one week Pt will Fu with 1) Psych Dr Sanchez 2) Psychotherapy Condition: Stable - Instructions Diet, Activity, Other Instructions: Regualr Diet Referrals: Gwyn Hernandes MD [Staff Physician] - Disposition: VNS/HOME HEALTH CARE - Home Medications Comprehensive Discharge Medication List: Ambulatory Orders Atorvastatin Ca [Lipitor] 10 mg PO HS 09/02/19
--- NOTE | 2019-09-11 16:23 | PN ---
Progress Note, Physician - Current Medication List Current Medications: Active Medications Clonazepam (Klonopin -) 0.5 mg PO HS [facility] Last Admin: 09/10/19 21:32 Dose: 0.5 mg Lisinopril (Prinivil) 10 mg PO DAILY [facility] Last Admin: 09/11/19 09:52 Dose: 10 mg - Objective Vital Signs: Vital Signs Temperature 98.4 F 09/11/19 14:57 Pulse Rate 63 09/11/19 14:57 Respiratory Rate 18 09/11/19 14:57 Blood Pressure 130/73 09/11/19 14:57 O2 Sat by Pulse Oximetry (%) 98 09/11/19 09:00 Labs: CBC, BMP 09/10/19 06:05 09/10/19 06:05 Problem List - Problems (1) Altered mental status Code(s): R41.82 - ALTERED MENTAL STATUS, UNSPECIFIED (2) Anxiety Code(s): F41.9 - ANXIETY DISORDER, UNSPECIFIED (3) Diastolic CHF Code(s): I50.30 - UNSPECIFIED DIASTOLIC (CONGESTIVE) HEART FAILURE (4) HLD (hyperlipidemia) Code(s): E78.5 - HYPERLIPIDEMIA, UNSPECIFIED (5) Hypertension Code(s): I10 - ESSENTIAL (PRIMARY) HYPERTENSION (6) Paranoia Code(s): F22 - DELUSIONAL DISORDERS (7) Rhabdomyolysis Code(s): M62.82 - RHABDOMYOLYSIS
== END 2019-09-11 19:33 | disposition home or self-care (01) | DRG 880 ==
LOC: JER 11:51 → INTOOBSV 18:58 → JERBED 18:58 → J7W 23:43 → OBSVTOIN 09-07 10:20
PROVIDERS: ADMIT Internal Medicine; ATTEND Internal Medicine
DX: F41.8 Other specified anxiety disorders (principal); M62.82 Rhabdomyolysis; I50.30 Unspecified diastolic (congestive) heart failure; F22 Delusional disorders; E78.5 Hyperlipidemia, unspecified; I11.0 Hypertensive heart disease with heart failure; R41.82 Altered mental status, unspecified
CPT/HCPCS: 36415; 70450-TC; 71046-TC-FY; 80048; 80053; 80061; 80307; 81003; 82550; 82553; 82607; 82962; 83721; 84443; 84484; 85025; 86593; 87086; 93005; 93010; 97116-GP; 97162-GP; 99284-25; G0378

== ENCOUNTER 2024-05-01 16:58 | Inpatient (IN) | payer OTHER, BC ==
[2024-05-01 18:55] LABS: BASO % 0.8 % (0-2.0); EOS % 0.8 % (0-4.5); HEMATOCRIT 42.1 % (32.4-45.2); LYMPH % 17.8 % (8-40); MCH 30.5 pg (25.7-33.7); MCHC 33.3 g/dl (32.0-36.0); MEAN CELL VOLUME 91.7 fl (80-96); MEAN PLT VOLUME 7.7 fl (7.5-11.1); MONO % 9.1 % (3.8-10.2); NEUT % 71.5 % (42.8-82.8); PLATELET COUNT 245 10^3/uL (134-434); RDW 14.6 % (11.6-15.6); WHITE BLOOD COUNT 6.8 K/mm3 (4.0-10.0)
[2024-05-01 18:57] LABS: PH,URINE 6.5 (5.0-8.0); URINE APPEARANCE CLEAR; URINE BILIRUBIN NEGATIVE (NEGATIVE); URINE COLOR YELLOW; URINE GLUCOSE (UA) NEGATIVE (NEGATIVE); URINE KETONE NEGATIVE (NEGATIVE); URINE LEUK ESTERASE NEGATIVE (NEGATIVE); URINE NITRITE NEGATIVE (NEGATIVE); URINE PROTEIN NEGATIVE (NEGATIVE); URINE UROBILINOGEN 0.2 mg/dL (0.2-1.0)
[2024-05-01 19:13] LABS: POTASSIUM 4.2 mmol/L (3.5-5.1)
[2024-05-01 19:14] LABS: CALCIUM 9.6 mg/dL (8.5-10.1)
[2024-05-01 19:15] LABS: BLOOD UREA NITROGEN 26.3 mg/dL (7-18); MAGNESIUM 2.2 mg/dL (1.8-2.4)
[2024-05-01 19:18] LABS: CREATININE 0.6 mg/dL (0.55-1.3); PHOSPHOROUS 3.8 mg/dL (2.5-4.9)
[2024-05-01] MEDS ORDERED: ACETAMINOPHEN 325 MG TABLET (FP) PO PRN (21:48)
[2024-05-02] MEDS ORDERED: ONDANSETRON 4 MG/2 ML VIAL ONE (04:41)
[2024-05-02] MEDS: ONDANSETRON 4 MG/2 ML VIAL IVPUSH ONE (04:49)
[2024-05-02 06:28] LABS: HEMATOCRIT 44.1 % (32.4-45.2); HEMOGLOBIN 14.6 GM/dL (10.7-15.3); MCH 30.6 pg (25.7-33.7); MCHC 33.1 g/dl (32.0-36.0); MEAN CELL VOLUME 92.5 fl (80-96); MEAN PLT VOLUME 7.6 fl (7.5-11.1); PLATELET COUNT 260 10^3/uL (134-434); RBC 4.76 M/mm3 (3.60-5.2); RDW 14.1 % (11.6-15.6); WHITE BLOOD COUNT 6.5 K/mm3 (4.0-10.0)
[2024-05-02 06:49] LABS: BLOOD UREA NITROGEN 20.5 mg/dL (7-18); CALCIUM 9.4 mg/dL (8.5-10.1)
[2024-05-02 06:53] LABS: CREATININE 0.6 mg/dL (0.55-1.3)
[2024-05-02] MEDS ORDERED: LORazepam 0.5 MG TABLET PO PRN ×2 (06:57→07:34)
[2024-05-02] MEDS ORDERED: LEVOTHYROXINE NA 100 MCG TABLET (FP) ONE (09:20)
[2024-05-02] MEDS ORDERED: DEXTROSE 5%-0.45% SALINE 1,000 ML IV SCH (11:00)
[2024-05-02] MEDS: AMINO ACIDS 4.25%/D5W 1,000 ML IV SCH (12:20)
[2024-05-02] MEDS ORDERED: hydrALAZINE HCL 25 MG TABLET (FP) PO PRN (17:58)
[2024-05-02] MEDS ORDERED: hydrALAZINE HCL 20 MG/ML VIAL ONE (18:06)
[2024-05-02] MEDS: hydrALAZINE HCL 20 MG/ML VIAL IVPUSH SCH (18:30)
[2024-05-02] MEDS: CARBIDOPA/LEVODOPA 25/100 TABLET (FP) PO SCH (18:30)
[2024-05-02] MEDS: LEVOTHYROXINE NA 100 MCG TABLET (FP) PO SCH (18:30)
[2024-05-02] MEDS ORDERED: CARBIDOPA/LEVODOPA 25/100 TABLET (FP) ONE (18:32)
[2024-05-02] MEDS ORDERED: MIRTAZAPINE 15 MG TABLET (FP) ONE (21:23)
[2024-05-02] MEDS: ATORVASTATIN CA 10 MG TABLET (FP) PO SCH (21:26)
[2024-05-02] MEDS: MIRTAZAPINE 30 MG TABLET PO SCH (21:28)
[2024-05-02 21:49] VITALS: BMI 24.7
[2024-05-03] MEDS ORDERED: CARBIDOPA/LEVODOPA 25/100 TABLET (FP) PO SCH (06:00)
[2024-05-03] MEDS: CARBIDOPA/LEVODOPA 25/100 TABLET (FP) PO SCH (06:06)
[2024-05-03] MEDS: LOSARTAN POTASSIUM 50 MG TABLET PO SCH (10:19)
[2024-05-03] MEDS ORDERED: MIRTAZAPINE 15 MG TABLET (FP) ONE (21:25)
[2024-05-03] MEDS: HEPARIN NA (PORCINE) 5,000 UNITS/ML 1ML VIAL SQ SCH (21:36)
[2024-05-04] MEDS: AMINO ACIDS 4.25%/D5W 1,000 ML IV SCH (14:35)
[2024-05-04] MEDS ORDERED: MIRTAZAPINE 15 MG TABLET (FP) ONE (22:52)
[2024-05-05 09:53] LABS: BASO % 0.8 % (0-2.0); EOS % 1.4 % (0-4.5); HEMATOCRIT 47.3 % (32.4-45.2); HEMOGLOBIN 15.4 GM/dL (10.7-15.3); LYMPH % 15.3 % (8-40); MCH 30.3 pg (25.7-33.7); MCHC 32.6 g/dl (32.0-36.0); NEUT % 74.5 % (42.8-82.8); PLATELET COUNT 255 10^3/uL (134-434); RBC 5.08 M/mm3 (3.60-5.2); RDW 14.1 % (11.6-15.6); WHITE BLOOD COUNT 8.8 K/mm3 (4.0-10.0)
[2024-05-05 10:09] LABS: POTASSIUM 4.2 mmol/L (3.5-5.1)
[2024-05-05 10:12] LABS: ALBUMIN 3.8 g/dl (3.4-5.0); BLOOD UREA NITROGEN 41.5 mg/dL (7-18); CALCIUM 9.7 mg/dL (8.5-10.1)
[2024-05-05 10:15] LABS: CREATININE 0.8 mg/dL (0.55-1.3)
[2024-05-05 10:17] LABS: TOT PROT 7.4 g/dl (6.4-8.2)
[2024-05-05] MEDS: LOSARTAN POTASSIUM 25 MG TABLET PO SCH (10:51)
[2024-05-05] MEDS ORDERED: MIRTAZAPINE 15 MG TABLET (FP) ONE (21:12)
[2024-05-06 09:34] LABS: POTASSIUM 4.1 mmol/L (3.5-5.1)
[2024-05-06 09:40] LABS: ALBUMIN 3.8 g/dl (3.4-5.0); BLOOD UREA NITROGEN 41.2 mg/dL (7-18); CALCIUM 9.7 mg/dL (8.5-10.1)
[2024-05-06 09:43] LABS: CREATININE 0.7 mg/dL (0.55-1.3)
[2024-05-06 09:45] LABS: BILIRUBIN,TOTAL 0.8 mg/dL (0.2-1); TOT PROT 7.8 g/dl (6.4-8.2)
[2024-05-06] MEDS ORDERED: MIRTAZAPINE 15 MG TABLET (FP) ONE (21:15)
[2024-05-06] MEDS: MIRTAZAPINE 15 MG TABLET (FP) PO SCH (21:32)
[2024-05-06] MEDS: DOCUSATE SODIUM 100 MG CAPSULE (FP) PO PRN (22:53)
[2024-05-07 08:24] LABS: POTASSIUM 3.7 mmol/L (3.5-5.1)
[2024-05-07 08:30] LABS: ALBUMIN 3.4 g/dl (3.4-5.0); BLOOD UREA NITROGEN 56.1 mg/dL (7-18); CALCIUM 9.1 mg/dL (8.5-10.1)
[2024-05-07 08:34] LABS: CREATININE 0.9 mg/dL (0.55-1.3)
[2024-05-07 08:36] LABS: BILIRUBIN,TOTAL 0.8 mg/dL (0.2-1)
[2024-05-08 08:39] LABS: URINE APPEARANCE CLEAR; URINE BILIRUBIN NEGATIVE (NEGATIVE); URINE COLOR YELLOW; URINE GLUCOSE (UA) NEGATIVE (NEGATIVE); URINE KETONE NEGATIVE (NEGATIVE); URINE LEUK ESTERASE NEGATIVE (NEGATIVE); URINE NITRITE NEGATIVE (NEGATIVE); URINE PROTEIN NEGATIVE (NEGATIVE); URINE UROBILINOGEN 0.2 mg/dL (0.2-1.0)
[2024-05-08 11:42] LABS: ALBUMIN 3.6 g/dl (3.4-5.0); BLOOD UREA NITROGEN 40.2 mg/dL (7-18); CALCIUM 9.2 mg/dL (8.5-10.1)
[2024-05-08 11:45] LABS: CREATININE 0.7 mg/dL (0.55-1.3)
[2024-05-08 11:48] LABS: BILIRUBIN,TOTAL 0.8 mg/dL (0.2-1); TOT PROT 7.4 g/dl (6.4-8.2)
[2024-05-08] MEDS: OLANZapine 5 MG TABLET PO SCH (21:23)
[2024-05-10 07:13] VITALS: RESP 18
[2024-05-10 11:06] VITALS: BP 119/73; PULSE 61; TEMP 98.1
== END 2024-05-10 13:17 | DRG 57 ==
LOC: JER 16:58 → JERBED 19:49 → J7W 05-02 20:39 → OBSVTOIN 05-03 10:39
PROVIDERS: ADMIT Internal Medicine; ATTEND Internal Medicine
DX: G20.A1 Parkinson's disease without dyskinesia, without mention of fluctuations (principal); M62.82 Rhabdomyolysis; I50.32 Chronic diastolic (congestive) heart failure; I11.0 Hypertensive heart disease with heart failure; F41.8 Other specified anxiety disorders; F22 Delusional disorders; E03.9 Hypothyroidism, unspecified; R26.2 Difficulty in walking, not elsewhere classified
CPT/HCPCS: 0241U-QW; 36415; 70450-TC; 71045-TC-FY; 80048; 80053; 81003; 82962; 83735; 84100; 84439; 84443; 85025; 85027; 87086; 93005; 93010; 97116-GP; 97162-GP; 99285-25; G0378; J1644